=== PATIENT | male | born 1965 | race African-American/Black ===

== ENCOUNTER 2016-06-09 03:20 | Emergency (ER) ==
[2016-06-09 03:27] VITALS: BP 131/81
--- NOTE | 2016-06-09 03:36 | PROVIDER DOCUMENTATION ---
[facility] General - General Chief Complaint: Earache Stated Complaint: EAR PAIN Time Seen by Provider: 06/09/16 03:32 Source: family Allergies/Adverse Reactions: Patient Allergies Allergy/AdvReac Type Severity Reaction Status Date / Time No Known Allergies Allergy Verified 12/10/12 23:38 Home Medications: Home Medication List Medication Instructions Recorded Confirmed Last Taken Type Atenolol/Chlorthalidone 1 each PO QAM 04/20/13 06/09/16 04/21/13 06:00 History [Atenolol-Chlorthalidone 100-25] Ciprofloxacin HCl [Cipro] 500 mg PO BID #20 tablet 06/09/16 Unknown Rx Omeprazole [Prilosec] 40 mg PO DAILY 06/09/16 06/09/16 Unknown History Prednisone 20 mg PO BID #10 tablet 06/09/16 Unknown Rx Zolpidem [Ambien] 10 mg PO HS 06/09/16 06/09/16 Unknown History - History of Present Illness-EENT General EENT Location: reports: ear (L) Quality of Pain: reports: aching, dull Onset/Duration: reports: 1 hour ago Timing: reports: still present Prearrival Treatment: Initiated no prearrival treatment Associated Symptoms: reports: denies symptoms Similar Symptoms Previously?: Yes Recently seen or treated by another doctor?: Yes Review of Systems - Adult - REVIEW OF SYSTEMS - ADULT Constitutional: reports: no symptoms reported Eyes: reports: no symptoms reported Ears, Nose, Mouth & Throat: reports: no symptoms reported Cardiovascular: reports: no symptoms reported Respiratory: reports: no symptoms reported Gastrointestinal: reports: no symptoms reported Genitourinary: reports: no symptoms reported Musculoskeletal: reports: no symptoms reported Integumentary: reports: no symptoms reported Neurological: reports: no symptoms reported Psychiatric: reports: no symptoms reported Endocrine: reports: no symptoms reported Hematologic/Lymphatic: reports: no symptoms reported Allergic/Immunologic: reports: no symptoms reported All Other Systems: Reviewed and Negative Past History - Adult - PAST MEDICAL HISTORY-ADULT Review of Records: reports: Old Records Reviewed, Nursing Assessment Review, Medications Reviewed, Social history reviewed & non-contributory. Major Childhood Illnesses: reports: denies history Cardiovascular: reports: denies history Respiratory: reports: denies history Gastrointestinal: reports: denies history Obstetrical/Gynecological: reports: denies history Genitourinary: reports: denies history Musculoskeletal: reports: denies history Neurological: reports: denies history Endocrine/Immune: reports: denies history Other Conditions: reports: denies history - FAMILY HISTORY Family History: reviewed, not pertinent Physical Exam- EENT - Physical Exam EENT Initial Vital Signs Reviewed: Yes General Appearance: alert Ear Exam: bilateral ear: auricle normal Nasal Exam: normal inspection Throat Exam: normal mouth inspection Neck: full range of motion Respiratory: chest non-tender Cardiovascular: regular rate, rhythm Abdominal Exam: no pulsatile mass Lymphatic: no adenopathy Back Exam: normal inspection Extremity: normal range of motion Integumentary: normal color 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
[2016-06-09] MEDS ORDERED: PREDNISONE ONE (03:48)
[2016-06-09] MEDS ORDERED: CIPRO ONE (03:49)
[2016-06-09] MEDS ORDERED: CIPRO PO ONE (03:53)
[2016-06-09] MEDS ORDERED: PREDNISONE PO ONE (03:54)
== END 2016-06-09 03:54 | disposition home or self-care (01) ==
LOC: P.ED 03:20
DX: H66.92 Otitis media, unspecified, left ear (principal); H92.02 Otalgia, left ear; Z79.899 Other long term (current) drug therapy
CPT/HCPCS: 99282; J7512